=== PATIENT | female | born 1945 | race Caucasian/White ===

== ENCOUNTER 2025-02-10 18:23 | Emergency (ER) | payer MEDICARE ==
[2025-02-10 19:02] LABS: BASOPHILS ABSOLUTE AUTO 0.03 10^3/uL (0.00-0.50); BASOPHILS PERCENT AUTO 0.5 % (0-1); EOSINOPHILS ABSOLUTE AUTO 0.25 10^3/uL (0.00-1.50); EOSINOPHILS PERCENT AUTO 3.9 % (0-6); IMMATURE GRAN ABSOLUTE AUTO 0.00 10^3/uL (0.00-0.49); IMMATURE GRAN PERCENT AUTO 0.0 % (0.0-4.9); LYMPHOCYTES ABSOLUTE AUTO 1.99 10^3/uL (0.60-5.00); LYMPHOCYTES PERCENT AUTO 30.8 % (24-44); MONOCYTES ABSOLUTE AUTO 0.51 10^3/uL (0.00-1.50); MONOCYTES PERCENT AUTO 7.9 % (0-10); NEUTROPHILS ABSOLUTE AUTO 3.68 x10^3/uL (1.80-8.00); NEUTROPHILS PERCENT AUTO 56.9 % (41-71); PLATELET COUNT,PLT 202 10^3/uL (150-400); RED BLOOD CELL COUNT 3.90 x10^6/uL (4.00-5.50); WHITE BLOOD CELL COUNT,WBC 6.5 10^3/uL (4.0-11.0)
[2025-02-10 19:21] LABS: ALANINE AMINOTRANSFERASE,ALT 22 U/L (12-78); ASPARTATE AMNIOTRANSFERASE,AST 16 U/L (15-37); BILIRUBIN TOTAL 1.1 mg/dL (0.0-1.0); BLOOD UREA NITROGEN,BUN 17 mg/dL (7-18); CARBON DIOXIDE,CO2 27 mmol/L (21-32); CHLORIDE,CL 107 mEq/L (98-106); CREATININE 0.7 mg/dL (0.6-1.0); ESTIMATED GFR 87 mL/min (>=60); GLUCOSE RANDOM 115 mg/dL (75-99); POTASSIUM,K 3.7 mEq/L (3.5-5.0); PROTEIN TOTAL,TP 6.3 g/dL (6.4-8.2); SODIUM,NA 141 mEq/L (136-145)
== END 2025-02-10 22:40 | disposition home or self-care (01) ==
LOC: CC.ED 18:23
DX: R07.89 Other chest pain (principal); M54.2 Cervicalgia; Z88.6 Allergy status to analgesic agent; Z88.8 Allergy status to other drugs, medicaments and biological substances; Z79.899 Other long term (current) drug therapy
CPT/HCPCS: 36415; 71045; 80053; 83735; 84484; 85025; 86140; 87426; 96374; 99285; A9270; J2270